=== PATIENT | female | born 1975 ===

== ENCOUNTER 2016-12-04 06:16 | Day surgery (SDC) | payer OTHER ==
[2016-12-01 11:32] VITALS: BMI 33.3
--- NOTE | 2016-12-04 06:38 | CP.PCM.PN ---
Subjective - Date & Time of Evaluation Date of Evaluation: 12/04/16 Time of Evaluation: 06:00 - Subjective Subjective: 41 year old female patient with no significant PMHx was seen at bedside this morning for scheduled surgery of Right ankle ORIF by Dr. Grier. Patient states that she broke her ankle 3 months ago when slipped and fell down the stairs at her house. Patient states that she went to [facility] ED where she was told to follow up with a doctor. She does not remember the name of the doctor and admits that she never followed up with the doctor. Patient states that she was in below knee cast for more than two months because she never followed up with a doctor. Patient finally follow up with podiatry clinic and now wishes for surgical intervention to fix her right ankle. Patient states that she feels moderate pain to the right ankle. Patient was explained of the surgical plan and understands the plan. Patient agrees with the surgical plan explained. Patient confirms NPO since last night. Patient denies of any N/V/F/C or SOB today Objective - Vital Signs/Intake and Output Vital Signs (last 24 hours): Temp Pulse Resp BP Pulse Ox 98.9 F 91 H 18 128/64 99 12/04/16 06:32 12/04/16 06:35 12/04/16 06:32 12/04/16 06:32 12/04/16 06:32 - Constitutional Appears: Well, Non-toxic, No Acute Distress - Extremities Exam Additional comments: Casting to right leg clean, dry and intact - Neurological Exam Neurological Exam: Alert, Awake, Oriented x3 - Psychiatric Exam Psychiatric exam: Normal Affect, Normal Mood - Skin Skin Exam: Normal Color, Warm Assessment and Plan - Assessment and Plan (Free Text) Assessment: 41 year old female patient presenting with Right Trimalleolar fracture Plan: Pt was seen and examined in SDS Pt NPO status was confirmed All Pre-op testing and clearance was in the chart Pt has exhausted all conservative treatment at this time and is opting for surgical intervention Pt was explained procedure and post-operative course All pt's questions were answered to satisfaction No guarantees were made Pt understands all risks, benefits and complications of procedure Pt will follow-up with Dr. Grier
--- NOTE | 2016-12-04 06:38 | CP.PCM.CON ---
Past Patient History - Past Medical History & Family History Past Medical History?: Yes - Past Social History Smoking Status: Never Smoked - PULMONARY Hx Respiratory Disorders: No - NEUROLOGICAL Hx Neurological Disorder: No - HEENT Hx HEENT Problems: No - RENAL Hx Chronic Kidney Disease: No - ENDOCRINE/METABOLIC Hx Endocrine Disorders: Yes Hx Hypothyroidism: Yes (DX 6 YRS .NO MEDICATION) - HEMATOLOGICAL/ONCOLOGICAL Hx Blood Disorders: No - INTEGUMENTARY Hx Dermatological Problems: No - MUSCULOSKELETAL/RHEUMATOLOGICAL Hx Musculoskeletal Disorders: No - GASTROINTESTINAL Hx Gastrointestinal Disorders: No - GENITOURINARY/GYNECOLOGICAL Hx Genitourinary Disorders: No - PSYCHIATRIC Hx Psychophysiologic Disorder: No - SURGICAL HISTORY Hx Surgeries: Yes Hx Section: Yes (X 2) - ANESTHESIA Hx Anesthesia: Yes Hx Anesthesia Reactions: No Hx Malignant Hyperthermia: No Has any member of the family had a problem w/ anesthesia?: No Meds Allergies/Adverse Reactions: Allergies Allergy/AdvReac Type Severity Reaction Status Date / Time No Known Allergies Allergy Verified 11/23/16 14:07 Results - Vital Signs Recent Vital Signs: Last Vital Signs Temp 98.9 F 12/04/16 06:32 Pulse 91 H 12/04/16 06:35 Resp 18 12/04/16 06:32 BP 128/64 12/04/16 06:32 Pulse Ox 99 12/04/16 06:32
[2016-12-04] MEDS ORDERED: Lactated Ringer's 1,000 ML IV ONE ×2 (06:49→10:42)
[2016-12-04] MEDS ORDERED: Lidocaine 1% Inj (20ml) IJ ONE (07:06)
[2016-12-04] MEDS ORDERED: Bupivacaine 0.5% 50 ML IJ ONE (07:06)
--- NOTE | 2016-12-04 07:10 | CP.SDSHP ---
Same Day Surgery H & P - History Proposed Procedure: Right ankle ORIF with plates and screws Pre-Op Diagnosis: Right ankle Trimalleolar fracture - Previous Medical/Surgical History Cardiac: Other Pulmonary: Other Endocrine/Metabolic: Other Neuro: Other Misc: Other Pain: 4.Moderate Pain - Allergies Allergies: Allergies No Known Allergies Allergy (Verified 11/23/16 14:07) - Physical Exam Vital Signs: Vital Signs 12/04/16 12/04/16 06:32 06:35 Temperature 98.9 F Pulse Rate 91 H 91 H Respiratory 18 Rate Blood Pressure 128/64 O2 Sat by Pulse 99 Oximetry Mental Status: Alert & Oriented x3 Neuro: WNL Heart: WNL Lungs: WNL GI: WNL - {Optional Preform as Required} Breast: Other Abdomen: Other Rectal: Other Integument: Other OIL PROGRAM COMPLIANCE SPECIALIST: Other : Other Ortho: Other ENT: Other - Impression Impression: Pt was seen and examined in SDS. Pt NPO status was confirmed. All Pre-op testing and clearance was in the chart. Pt has exhausted all conservative treatment at this time and is opting for surgical intervention. Pt was explained procedure and post-operative course. All pt's questions were answered to satisfaction. No guarantees were made. Pt understands all risks, benefits and complications of procedure. Pt will follow-up with Dr. Grier in podiatry clinic as outpatient Pt. Evaluated Today:Candidate for Anesthesia & Procedure: Yes - Date & Time Date: 12/04/16 Short Stay Discharge - Short Stay Discharge Admitting Diagnosis/Reason for Visit: S82.5/I82.61 Disposition: HOME/ ROUTINE Medications: Cephalexin [Keflex] 500 mg PO TID #21 cap Enoxaparin [Lovenox] 40 mg SC DAILY #14 syr oxyCODONE/Acetaminophen [Percocet 5/325 mg Tab] 5 - 325 mg PO Q4 PRN #20 tab PRN Reason: Pain, Moderate (4-7) Referrals: FAMILY PROVIDER,NO [Primary Care Provider] - Follow-up: Follow up with Podiatry Clinic at [facility] within 1 week as an out patient. Instructions: RICE Therapy (GEN), Cephalexin (By mouth), Acetaminophen/Codeine (By mouth), Oxycodone/Acetaminophen (By mouth), Crutch Instructions (DC), Crutch Instructions (GEN) Additional Instructions (Diet, Activity): Non-weight bearing to Right lower extremity with crutches Progress Note/Discharge Note with Instructions: Patient in good/stable condition for discharge home. Pt to resume medications per medical reconciliation. Resume regular diet. Please keep dressing clean, dry, & intact to surgical site, use plastic bag over bandage for showering, wear post op shoe at all times when ambulating, call clinic if you see signs of infection (redness, swelling, malodor), please make an appointment to see Dr. Grier in clinic within 1 week for post-op check. Podiatry clinic at [facility]
[2016-12-04] MEDS ORDERED: Lactated Ringer's 1,000 ML IV SCH ×2 (07:15→11:45)
[2016-12-04] MEDS ORDERED: Bupivacaine 0.5% Inj(30mL) ONE (07:29)
[2016-12-04] MEDS ORDERED: Propofol 10 mg/ml Inj (20 ML) ONE (07:43)
[2016-12-04] MEDS ORDERED: Midazolam 2 MG/2 ML VIAL ONE (07:44)
[2016-12-04] MEDS ORDERED: ceFAZolin 1 GM in Sodium Chloride 0.9% 100 ML IVPB ONE (09:15)
--- NOTE | 2016-12-04 11:30 | PCM.ANESB2 ---
Popliteal Nerve Block - Popliteal Nerve Block Date of Procedure: 12/04/16 Anesthesiologist: Quique Javier MD Pre-Procedure Diagnosis: Tri Malleolar Fracture Right anle Post-Procedure Diagnosis: Same Procedure Performed: Popliteal Nerve Block Right - Procedure Popliteal Nerve Block: This procedure was explained to the patient that it is for post-operative pain management. Consent was obtained after a thorough discussion with the patient regarding the benefits and possible complications of local anesthetic block of the sciatic nerve at the popliteal level. The procedure was performed under general anesthesia just after the surgical procedure Time-out was held with the circulating nurse to confirm the correct surgery and the appropriate block. After applying oxygen by nasal cannula and administering IV Sedation, patient's operative leg was gently raised and supported and the groove in between the biceps femoris and vastus lateralis muscles was carefully palpated. The skin approximately 8cm above the popliteal crease was then marked. The ultrasound transducer was then applied to the posterior thigh approximately 8cm above the popliteal crease in the transverse plane and the sciatic nerve before its division was visualized lateral to the popliteal artery and in between the bicep femoris and semimembranosus/semitendinosus muscles. After identification, the lateral portion of the thigh was prepped with Chloroprep solution. At this point, a # 21 gauge Stimuplex insulated 6 inch needle was inserted into pre-marked area and advanced in a perpendicular direction. The needle was inserted above the ultrasound transducer in-plane towards the sciatic nerve in a mhrygli-ag-mwlire direction. Needle advancement was performed carefully under direct ultrasound visualization. Nerve stimulator was used and dorsiflexion of the _Right____ foot was elicited at a current of _0.2____ MA. After repeated negative aspiration, _20____cc of __0.5___ % _Ropivacaine. Under ultrasound guidance the local anesthetics were observed tenting the epidural sheath and surrounding the roots of the sciatic nerve. The needle was removed intact and sterile dressing was applied. The patient tolerated the popliteal nerve block well with stable vital signs.The patient was brought to PACU in stable condition.
[2016-12-04] MEDS ORDERED: Oxycodone/Acetaminophen 5/325 mg Tab PO PRN ×2 (11:33)
[2016-12-04] MEDS ORDERED: HYDROmorphone 0.5 mg/0.5 ml ISec IVP PRN (11:40)
--- NOTE | 2016-12-04 11:54 | PCM.SURG1 ---
Surgeon's Initial Post Op Note - Surgeon's Notes Surgeon: Dr. Grier Experimental Flight Test Mechanic: Dr. Fregoso, Dr. Urbina Type of Anesthesia: General Endo, Local Anesthesia Administered By: Dr. Javier Pre-Operative Diagnosis: Right ankle Trimalleolar fracture Operative Findings: Materials: 1x 7 hole 1/3 tubular plate. 2x 4.0x30mm cannulated screws. 7x cortical screws. 2-0, 3-0, 4-0 vicryl. 3-0 monocryl Post-Operative Diagnosis: same Operation Performed: Right ankle ORIF with plates and screws Specimen/Specimens Removed: none Estimated Blood Loss: EBL {In ML}: 5 Blood Products Given: N/A Drains Used: No Drains Post-Op Condition: Good Date of Surgery/Procedure: 12/04/16 Time of Surgery/Procedure: 08:00
[2016-12-04 12:37] VITALS: O2SAT 100
--- NOTE | 2016-12-04 13:04 | RAD ---
PROCEDURE: Right ankle dated 12/04/2016 HISTORY: right ankle surgery COMPARISON: No prior study available for comparison. TECHNIQUE: Two views of the right ankle performed through a fiberglass cast which obscures fine soft tissue and bone detail. FINDINGS: Current study reveals a long segment fixation plate attached to the lateral fibula by multiple threaded screws. There are 2 cannulated partially threaded compression screws also seen traversing the medial malleolus. Satisfactory anatomic alignment. IMPRESSION: ORIF changes right distal fibula and distal tibia. Satisfactory alignment
[2016-12-04 13:40] VITALS: BP 143/93; PULSE 88; RESP 20; TEMP 98
--- NOTE | 2016-12-08 15:06 | OP ---
PROCEDURE DATE: 12/04/2016 SURGEON: Dr. Luke Grier. BENCH MOLDER APPRENTICE: Rosenda Urbina. PGY-[address] Douglas, PGY-3 ANESTHESIA: General. PREOPERATIVE DIAGNOSIS: Right displaced trimalleolar fracture, closed. POSTOPERATIVE DIAGNOSIS: Right displaced trimalleolar fracture, closed. PROCEDURE: Open reduction with internal fixation of right closed trimalleolar ankle fracture. INDICATION: The patient is a 41-year-old female with the above-mentioned diagnosis. The patient has exhausted conservative treatment at this time. She has been in a cast since July after a closed reduction was performed at [facility]. The patient was unable to follow up with a physician chrissie naranjo to insurance complications. She therefore has a delay in the surgical procedure. The patient has been following with Dr. Luke Grier on an outpatient basis in the clinic at [facility] [place]. The patient requires surgical intervention to reduce the ankle fracture into a more anatomic al position. At this time, the patient has signed a consent after careful explanation of risks, bene fits, complications, and alternatives for surgical procedure. No guarantees were given nor implied. The patient received 2 grams of Ancef via IV prior to the procedure and her n.p.o. status was confir med prior to taking her back to the operating room. PREPARATION: The patient was taken to the operating room and placed on the operating room table in a supine position. A well-padded thigh tourniquet was placed on the patient's right thigh. Once gene ral anesthesia was achieved, the right lower extremity was prepped and draped in usual sterile manner . Esmarch was utilized to exsanguinate the patient's right lower extremity and the thigh tourniquet was inflated to 350 mmHg and the procedure began. DESCRIPTION OF PROCEDURE: Attention was directed to the lateral aspect of the patient's right ankle where the fibula was palpated and at the midline of the distal aspect of the fibula, utilizing #15 bl martinez, an incision was made at mid ____ of the fibula. Sharp and blunt dissection were taken to retra ct all vital neurovascular structures. Cautery was utilized as necessary. Once down to the perioste um, the periosteum was incised in the same linear fashion and it was reflected back utilizing sharp a nd blunt dissection, both anteriorly and posteriorly. The fracture site was identified with excessiv e amount of hematoma and soft tissue within the fracture site. The hematoma and soft tissue were sherry rided utilizing a #15 blade and a [place]. The fibular fracture site was then irrigated with copious a matt of sterile normal saline and utilizing reduction clamp, 2 alligator clamps, the fibula was red uced to a more anatomical position. The fibular reduced with a clamp and it was held in reduction wi th the Synthes 7-hole plate and nonlocking and locking screws. The wound was then irrigated with copy center specialist ious amounts of sterile normal saline and the periosteum was reapproximated utilizing 3-0 Vicryl sutu res. Subcutaneous and subcuticular tissues were reapproximated utilizing 4-0 Vicryl sutures and skin was reapproximated utilizing 4-0 Monocryl sutures in a continuous ____ pattern. Attention was then directed at the medial aspect of the patient's right ankle where utilizing a #15 blade, a curvilinear incision was made overlying the medial malleolus. At this point, sharp and blunt dissection was car ried down to the periosteum, making sure to retract and avoid all vital neurovascular structures. Ca utery was utilized as necessary. Once down to the periosteum, it was noted that the fracture site wa s in a transverse oblique orientation with soft tissue and hematoma involvement within the fracture s ite which were debrided out from the fracture site and irrigated with copious amounts of sterile norm al saline. Once the fracture site was clear, it was reduced and two 4.[address] d across the osteotomy with washers to stabilize the medial malleolus. The wound was irrigated with copious amounts of sterile normal saline and the periosteum was reapproximated utilizing 3-0 Vicryl s utures and the skin was reapproximated utilizing 4-0 Monocryl sutures. At this time, the wounds were covered with Steri-Strips. The patient was injected with 10 mL of 0.5% lidocaine plain in a local b lock fashion to the right lower extremity for the saphenous nerve. The patient's ankle was dressed w ith wet to dry, 4 x 4 dressings and a [id number]-lqt-[id number] bivalved circular cast. POSTOPERATIVE CONDITION: The patient tolerated anesthesia and procedure well and was escorted to the recovery room with vital signs stable and neurovascular status intact to the right lower extremity. The patient is to follow with Dr. Luke Grier on an outpatient basis in clinic and she is to be nonweightbearing with a cast. Rosenda Urbina DPM Luke Grier DPM cc: [id number] TT: 12/08/2016 15:05:47 tn
== END 2016-12-04 14:15 | disposition home or self-care (01) ==
LOC: H.OPSURG 06:16
PROVIDERS: ATTEND Podiatrist
DX: S82.851A Displaced trimalleolar fracture of right lower leg, initial encounter for closed fracture (principal); W10.8XXA Fall (on) (from) other stairs and steps, initial encounter; Y93.9 Activity, unspecified; Y92.009 Unspecified place in unspecified non-institutional (private) residence as the place of occurrence of the external cause